=== PATIENT | female | born 1940 | race Caucasian/White ===

== ENCOUNTER 2018-12-21 09:29 | Day surgery (SDC) | payer MEDICARE, BC ==
[~2018-12-21 09:29] MED LIST: ACETAMINOPHEN 1,000 MG/100 ML BTL IV ONE
[2018-12-21] MEDS ORDERED: FENTANYL PF 100MCG/2ML VIAL IV ONE (09:30)
[2018-12-21] MEDS ORDERED: LIDOCAINE 2% MDV (20MG/ML) 20ML VIAL IV ONE (09:30)
[2018-12-21] MEDS ORDERED: BUPIVACAINE 0.25% W/EPI MPF 30ML VIAL IVP ONE (09:30)
[2018-12-21] MEDS ORDERED: ONDANSETRON HCL IV 4 MG/2 ML VIAL IVP ONE (09:30)
[2018-12-21] MEDS ORDERED: MIDAZOLAM HCL 2MG/2ML VIAL IV ONE (09:30)
[2018-12-21] MEDS ORDERED: SEVOFLURANE 250 ML INH ONE (09:30)
[2018-12-21] MEDS ORDERED: DEXAMETHASONE 4 MG/ML 1ML VIAL IVP ONE (09:30)
[2018-12-21] MEDS ORDERED: PROPOFOL 10 MG/ML VIAL IV ONE (09:30)
[2018-12-21 09:47] LABS: BASO % 0.8 % (0-6); EOS % 4.3 % (0-6); GRAN % 55.3 % (47-80); HEMATOCRIT 46.9 % (35.0-47.0); HEMOGLOBIN 15.9 gm/dl (11.6-16.0); LYMPH % 31.7 % (16-45); MEAN CORPUSCULAR HEMOGLOBIN 31.9 pg (27-33); MEAN CORPUSCULAR HGB CONC 33.9 g/dl (32-36); MEAN PLATELET VOLUME 9.7 fl (7.4-10.4); MONO % 7.9 % (0-9); PLATELET COUNT 229 K/uL (130-400); RED BLOOD COUNT 4.99 M/uL (3.80-5.40); RED CELL DISTRIBUTION WIDTH 13.5 % (11.5-14.5); WHITE BLOOD COUNT W/O DIFF 7.7 K/uL (4.2-12.2)
[2018-12-21 10:10] LABS: BLOOD UREA NITROGEN 14 mg/dL (8-23); CREATININE 0.6 mg/dL (0.5-0.9); EST GLOMERULAR FILTRATION RATE > 60 mL/min; GLUCOSE,RANDOM 107 mg/dL (74-109)
--- NOTE | 2018-12-22 09:50 | Operative Note ---
DATE OF SURGERY: 12/21/2018 Surgeon: Josr Mullins DO PREOPERATIVE DIAGNOSES: 1. Torn medial meniscus of the right knee. 2. Chondromalacia of the right knee. POSTOPERATIVE DIAGNOSES: 1. Torn medial and lateral meniscus of the right knee. 2. Chondromalacia of the right knee (tricompartmental). OPERATION: 1. Arthroscopic partial medial and lateral meniscectomy, right knee. 2. Arthroscopic chondroplasty of the medial femoral condyle, right knee. DESCRIPTION OF PROCEDURE: This 78-year-old female was taken to the operating room and placed in the supine position on the operating room table where general anesthetic was administered. The right lower extremity was elevated, exsanguinated, and the tourniquet inflated to 300 mmHg. The right knee was placed in the arthroscopic knee coleman, prepped with Hibiclens, and draped in the usual sterile fashion. An inferolateral portal was established for the 4 mm arthroscope, and initial evaluation of the joint demonstrated grade 3 chondromalacia of the center of the median ridge of the patella. This lesion was approximately 1 cm to 1.5 cm in greatest dimension but no loose or fragmented articular cartilage was present there, so it was not further disturbed. The trochlea appeared to show very minimal early scuffing of the trochlea with no unstable fragments of articular cartilage noted. The medial compartment was entered, and grade 2 chondromalacia of the entire weightbearing surface of the medial femoral condyle was present. There were some small loose flaps of articular cartilage, especially posteriorly, which were debrided with the rotating shaver. There was a complex degenerative tear of the posterior horn of the medial meniscus extending from the posterior horn around to approximately the 2-o'clock position. Anteriorly the meniscus was normal. Utilizing an inferomedial portal, we used a basket forceps to resect to the apex of the tear being at approximately the 12-o'clock position and then tapering in both directions removing flaps and the horizontal cleavage component around to about the 3-o'clock position. Once this had been stabilized with the basket and arthroscopic forceps, the rotating shaver was used to further smooth, trim, and balance the meniscus. It was re-probed and confirmed to be stable. The intracondylar notch was examined and found to be normal. The lateral compartment was entered and the lateral compartment demonstrated very minimal scuffing of the articular cartilage of both the tibial plateau and the lateral femoral condyle and it was not further disturbed; however, there were radial tears of the lateral meniscus extending from about the 8-o'clock position around to about the 11-o'clock position. Utilizing the basket forceps and rotating shaver, we were able to resect unstable fragments of the meniscus and smooth and balance it with the rotating shaver. It was re-probed and confirmed to be stable. The wound was then copiously flushed, irrigated and suctioned. The instruments were removed. The portals infiltrated with 0.25% Marcaine with epinephrine. The portals were sutured with 4-0 nylon suture. Sterile dressings applied. Tourniquet and knee coleman released, and the patient taken to the recovery room in satisfactory condition. GROSS PATHOLOGY: This patient demonstrated tricompartmental chondromalacia with grade 3 at the patella, grade 2 at the medial femoral condyle, and all other areas demonstrating grade 2 change. The patient had tears of both the medial and lateral meniscus with the medial meniscus being much more extensive than the lateral. Both were stable at the completion of the procedure. CC: Eduardo Hutchison MD [facility]atelyn
== END 2018-12-21 14:04 | disposition home or self-care (01) ==
LOC: SUR 09:29
PROVIDERS: ATTEND Orthopaedic Surgery
DX: S83.231A Complex tear of medial meniscus, current injury, right knee, initial encounter (principal); S83.281A Other tear of lateral meniscus, current injury, right knee, initial encounter; M94.261 Chondromalacia, right knee; E78.00 Pure hypercholesterolemia, unspecified; E03.9 Hypothyroidism, unspecified
CPT/HCPCS: 80048; 85025; J2405